=== PATIENT | female | born 1955 | race Caucasian/White ===

== ENCOUNTER 2018-06-15 05:52 | Day surgery (SDC) | payer BC ==
[~2018-06-15 05:52] MED LIST: Buffered Lidocaine 0.9% SYRIN* 5 ML/SYR SYRINGE INTRADERM ONE
[2018-06-15] MEDS ORDERED: ceFAZolin 1 GM in Dextrose (*) 1 GM/50 ML BAG IVPB ONE (06:07)
[2018-06-15] MEDS ORDERED: ceFAZolin 2 GM in NS PREMIX(*) 2 GM/100 ML BAG IVPB ONE (06:07)
[2018-06-15] MEDS ORDERED: Buffered Lidocaine 0.9% SYRIN* 5 ML/SYR SYRINGE ONE (06:07)
[2018-06-15] MEDS ORDERED: Lidocaine 2% PF * 5 ML VIAL ONE ×2 (06:46)
[2018-06-15] MEDS ORDERED: Succinylcholine* 20 MG/ML 10 ML VIAL ONE (06:46)
[2018-06-15] MEDS ORDERED: Propofol* 10 MG/ML 20 ML BTL IV PUSH ONE (06:46)
[2018-06-15] MEDS ORDERED: fentaNYL* 50 MCG/ML 2 ML VIAL (100 MCG VIAL) ONE (06:50)
[2018-06-15] MEDS ORDERED: Midazolam* 1 MG/ML 2 ML VIAL (2 MG) ONE (06:50)
[2018-06-15] MEDS ORDERED: Bupivacaine 0.5% SDV PF* 30ML VIAL ONE (07:22)
[2018-06-15] MEDS ORDERED: Bupivacaine 0.25% SDV* 30 ML ONE (07:22)
[2018-06-15] MEDS ORDERED: Dexamethasone IV* 4 MG/ML 1 ML (4 MG) ONE (07:44)
[2018-06-15] MEDS ORDERED: Ondansetron INJ* 2 MG/ML VIAL ONE (07:44)
[2018-06-15] MEDS ORDERED: EPHEDrine (Pressors)* 50 MG/ML VIAL ONE (07:44)
[2018-06-15] MEDS ORDERED: Naloxone* 0.4 MG/ML 1 ML VIAL IV PRN (08:07)
[2018-06-15] MEDS ORDERED: Ondansetron ODT TAB* 4 MG PO PRN (08:07)
[2018-06-15] MEDS ORDERED: fentaNYL* 50 MCG/ML 2 ML VIAL (100 MCG VIAL) IV PRN (08:07)
[2018-06-15] MEDS ORDERED: Acetaminophen IV 1GM/100ML * 100 ML ONE (08:08)
[2018-06-15] MEDS ORDERED: Ketorolac INJ* 30 MG/ML 1 ML VIAL ONE (08:09)
[2018-06-15] MEDS ORDERED: Metoclopramide IV* 5 MG/ML 2 ML VIAL ONE (08:09)
--- NOTE | 2018-06-15 09:07 | OP ---
Operative Report - Blank - Operative Report Date of Operation: 06/15/18 Note: PATIENT: Stephanie Subramanian DATE OF : 1955 DATE OF SURGERY: 06/15/2018 SURGEON: Edward Mcgowan MD REMODELER: GIOVANNI Man, whos assistance was necessary for positioning, retraction, help with instrumentation, and closure. ANESTHESIOLOGIST: Dr. Mitchell PREOPERATIVE DIAGNOSIS: Left ankle arthritis with anterior impingement with distal tibia and dorsal talus osteophytes. POSTOPERATIVE DIAGNOSIS: Left ankle arthritis with anterior impingement with distal tibia and dorsal talus osteophytes. OPERATION: 1. Left ankle arthroscopy with extensive debridement. 2. Left ankle excision of distal tibial osteophytes/saucerization. 3. Left ankle excision of dorsal talus osteophytes/saucerization. ANESTHESIA: LMA IMPLANTS: none TOURNIQUET TIME: Less than 1 hour with a well-padded thigh tourniquet at 275mmHg SPECIMENS: none ESTIMATED BLOOD LOSS: minimal COMPLICATIONS: none STATUS: Stable from the operating room to the recovery room and then home. INDICATIONS FOR PROCEDURE: Stephanie has left ankle arthritis and anterior bony impingement that has been refractory to extensive non-operative treatment. Both operative and non operative treatment alternatives were reviewed. Further, the nature and risks of surgery were reviewed in careful detail, in the office as well as the pre- operative holding area. Our discussions regarding the risks of surgery included , but were not limited to, infection, wound problems, nerve injury, neuroma, RSD , persistent symptoms, blood clot, failure of the surgery, and even the remote chance of catastrophic complication, including loss of limb. DESCRIPTION OF PROCEDURE: The patient was seen in the preoperative holding unit and informed written consent was obtained. The appropriate extremity was marked. The patient was then brought to the operating room and carefully positioned on the operating room table. Anesthesia was induced. All bony prominences were padded with great care. A well-padded thigh tourniquet was placed. A chlorhexidine based pre- scrub was performed followed by a chloraprep prep and drape in standard sterile fashion. A surgical safety pause was then conducted in which we confirmed the appropriate patient, extremity, planned procedure, availability of equipment, indication and administration of prophylactic antibiotics, and DVT prophylaxis in the form of a compression boot on the non-surgical extremity. I began with an Esmarch exsanguination of the limb and the tourniquet was inflated. The leg was positioned in the noninvasive ankle arthroscopy leg myers setup. I began by establishing the anteromedial portal. I utilized a spinal needle for this. Great care was taken to protect the superficial neurovascular structures. Under direct visualization, I then established an anterolateral portal. Great care was taken to protect the superficial peroneal nerve. There was a fair amount of arthritis in the joint, especially anteriorly. There were free flaps of cartilage, as well as cartilaginous loose bodies. I utilized a full radius shaver to remove these free cartilaginous loose bodies, as well as all flaps of cartilage. I also removed a considerable amount of synovitis from the anterior aspect of the ankle joint. This was carefully removed to give a nice view of the ankle joint. I then turned my attention to the anterior impingement of the ankle joint. The anterior aspect of the distal tibia was exposed using the shaver. This revealed a protruding osteophyte at the anterior aspect of the distal tibia, as well as the dorsal aspect of the talus. There was also a bony loose body at the anterior joint, embedded in the soft tissues. A 3 mm arthroscopic kamar was utilized to kamar down the osteophytes and loose body, thus performing a distal tibia and dorsal talus saucerization. Afterwards, she had no bony blocks to dorsiflexion as seen directly arthroscopically with range of motion. I then again utilized the full radius shaver to remove all additional debris from the ankle joint. I then made a longitudinal 2 cm incision at the anteromedial ankle joint line. I bluntly dissected down to the medial shoulder of the ankle joint. I then used a rongeur to excise osteophytes from the anterior aspect of the medial malleolus. The ankle had improved dorsiflexion afterwards. I then copiously irrigated the wounds and closed in layers utilizing 3-0 Monocryl and 3-0 nylon. At this point, a sterile dressing was applied. The patient was then awakened from anesthesia and transferred to the recovery room in stable condition. There were no complications. All needle and sponge counts were correct at the end of the case. ATTESTATION: I attest I was present and scrubbed and performed the critical portions of the procedure myself. POSTOPERATIVE PLAN: She will follow up in 2 weeks for likely suture removal. She can be weightbearing as tolerated in an Aircast boot.
[2018-06-15] MEDS ORDERED: Ondansetron ODT TAB* 4 MG ONE (10:37)
[2018-06-15 10:40] VITALS: BP 114/73
== END 2018-06-15 11:05 | disposition home or self-care (01) ==
LOC: OR 05:52
PROVIDERS: ATTEND Orthopaedic Surgery
DX: M19.072 Primary osteoarthritis, left ankle and foot (principal); M25.772 Osteophyte, left ankle; M25.872 Other specified joint disorders, left ankle and foot; J45.909 Unspecified asthma, uncomplicated; Z85.42 Personal history of malignant neoplasm of other parts of uterus; E66.01 Morbid (severe) obesity due to excess calories
CPT/HCPCS: A9270-GY; J0330; J0690; J1100; J1885; J2250; J2405; J2704; J2765; J3010

== ENCOUNTER 2018-10-11 10:53 | Emergency (ER) | payer BC ==
[2018-10-11 11:16] VITALS: BP 137/77
[2018-10-11] MEDS ORDERED: Ketorolac INJ* 30 MG/ML 1 ML VIAL IM ONE (11:43)
--- NOTE | 2018-10-11 11:49 | UC ---
Back Pain HPI - HPI Summary HPI Summary: She is a 63-year-old female that has had low back pain right buttocks pain and right sided sciatica since June 2018. Her symptoms seem to be improving until 2 days ago when she had to sit through a long meeting a hard chair. She now has severe pain right buttocks radiating down the right posterior thigh. She has some numbness to the bottom of her foot. Denies any bowel or bladder dysfunction. She does have a history of uterine cancer. She has been on 25 day courses of prednisone during this which seemed to help dramatically. Her last dose of ibuprofen was about 6 hours ago. - History of Current Complaint Chief Complaint: UCLowerExtremity Stated Complaint: leg pain Time Seen by Provider: 10/11/18 11:37 Hx Obtained From: Patient Onset/Duration: Sudden Onset, Lasting Weeks Timing: Constant Severity Initially: Mild Severity Currently: Moderate Pain Intensity: 4 - 8-10 when seated Pain Scale Used: 0-10 Numeric Back Pain: Is Discrete @, Radiates To - right post thigh Character: Aching, Throbbing, Spasmodic Aggravating Factor(s): Movement, Lifting, Bending, Other - sitting Alleviating Factor(s): Nothing Associated Signs And Symptoms: Positive: Numbness - bottom of right foot. Negative: Swelling, Redness, Bruising, Fever, Weakness Full Body (No Head): 1 - pain 2 - pain 3 - radiation 4 - numb - Allergies/Home Medications Allergies/Adverse Reactions: Allergies Allergy/AdvReac Type Severity Reaction Status Date / Time diphenhydramine Allergy Severe Swelling Verified 10/11/18 11:16 Home Medications: Home Medications Gabapentin 300 mg PO 10/11/18 [History] PMH/Surg Hx/FS Hx/Imm Hx Previously Healthy: Yes Cancer History: Other Other Cancer History: uterine - Surgical History Surgical History: Yes Surgery Procedure, Year, and Place: total hysterrectomy; left ankle repair; left shoulder - Social History Alcohol Use: Rare Substance Use Type: None Smoking Status (MU): Never Smoked Tobacco Review of Systems All Other Systems Reviewed And Are Negative: Yes Constitutional: Positive: Negative Skin: Positive: Negative Eyes: Positive: Negative ENT: Positive: Negative Respiratory: Positive: Negative Cardiovascular: Positive: Negative Gastrointestinal: Positive: Negative Genitourinary: Positive: Negative Motor: Positive: Negative Neurovascular: Positive: Negative Musculoskeletal: Positive: Myalgia Neurological: Positive: Numbness - bottom of right foot Psychological: Positive: Negative Physical Exam Triage Information Reviewed: Yes Appearance: Well-Appearing, No Pain Distress, Well-Nourished Vital Signs: Initial Vital Signs Temp 97.5 F 10/11/18 11:11 Pulse 71 10/11/18 11:11 Resp 18 10/11/18 11:11 BP 137/77 10/11/18 11:11 Pulse Ox 97 10/11/18 11:11 Vital Signs Reviewed: Yes Eyes: Positive: Conjunctiva Clear ENT: Positive: Hearing grossly normal. Negative: Nasal congestion, Nasal drainage, Trismus, Muffled voice, Hoarse voice Dental Exam: Normal Neck: Positive: Supple, Nontender, No Lymphadenopathy Respiratory: Positive: Lungs clear, Normal breath sounds, No respiratory distress, No accessory muscle use Cardiovascular: Positive: RRR, No Murmur Musculoskeletal: Positive: Other: - (+) SLR on right Neurological: Positive: Alert, Other: - see image Psychological Exam: Normal Skin Exam: Normal Diagnostics - Radiology No standard instances Radiology Interpretation Completed By: Radiologist Summary of Radiographic Findings: views of the lumbar spine demonstrates grade 1 spondylolisthesis of L3 on 4 and L4 on 5. Disc space narrowing at L4-L5 and L5-S1 is noted. Facet arthropathy is noted. Back Pain Course/Dx - Differential Dx/Diagnosis Provider Diagnosis: Right sided sciatica, Spondylolisthesis at L3-L4 level, Lumbar degenerative disc disease, Facet arthritis of lumbar region Discharge - Sign-Out/Discharge Documenting (check all that apply): Patient Departure All imaging exams completed and their final reports reviewed: Yes - Discharge Plan Condition: Stable Disposition: HOME Patient Education Materials: Sciatica (ED) Referrals: Tana Rose MD [Primary Care Provider] - - Billing Disposition and Condition Condition: STABLE Disposition: Home
== END 2018-10-11 12:51 | disposition home or self-care (01) ==
LOC: UCEAST 10:53
DX: M51.16 Intervertebral disc disorders with radiculopathy, lumbar region (principal); M43.16 Spondylolisthesis, lumbar region; M46.86 Other specified inflammatory spondylopathies, lumbar region; Z88.8 Allergy status to other drugs, medicaments and biological substances
CPT/HCPCS: 72110; 99212; G0463; J1885

== ENCOUNTER 2019-03-22 09:36 | Emergency (ER) | payer BC ==
[2019-03-22 09:48] VITALS: BP 123/80
--- NOTE | 2019-03-22 10:16 | UC ---
Neck Pain HPI - HPI Summary HPI Summary: She started with a stiff neck a couple days ago which was markedly worse yesterday morning when she woke up. She's been treating it with ibuprofen and some leftover Flexeril and it is a little bit better today. It hurts to move and makes it difficult to sleep. She has no known injury. - History of Current Complaint Chief Complaint: UCGeneralIllness Stated Complaint: STIFF NECK Time Seen by Provider: 03/22/19 10:10 Hx Obtained From: Patient Onset/Duration Of Injury/Symptoms: Days - A lot that Onset/Duration: Gradual Onset Severity: Moderate - The and that the Pain Intensity: 7 Location: Discrete At: - left upper neck Character: Stiff Aggravating Factors: Movement Alleviating Factors: Other: - flexeril, Heat Associated Signs & Symptoms: Positive: Negative - Allergies/Home Medications Allergies/Adverse Reactions: Allergies Allergy/AdvReac Type Severity Reaction Status Date / Time diphenhydramine Allergy Severe Swelling Verified 03/22/19 09:48 PMH/Surg Hx/FS Hx/Imm Hx Previously Healthy: Yes Respiratory History: Asthma - Surgical History Surgical History: Yes Surgery Procedure, Year, and Place: total hysterrectomy; left ankle repair; left shoulder - Social History Alcohol Use: Rare Substance Use Type: None Smoking Status (MU): Never Smoked Tobacco Review of Systems All Other Systems Reviewed And Are Negative: Yes Constitutional: Positive: Negative ENT: Positive: Negative Respiratory: Positive: Negative Neurovascular: Positive: Negative Musculoskeletal: Positive: Decreased ROM Neurological: Positive: Negative Psychological: Positive: Negative Physical Exam Triage Information Reviewed: Yes Appearance: Well-Appearing Vital Signs: Initial Vital Signs Temp 98.1 F 03/22/19 09:44 Pulse 84 03/22/19 09:44 Resp 18 03/22/19 09:44 BP 123/80 03/22/19 09:44 Pulse Ox 98 03/22/19 09:44 Vital Signs Reviewed: Yes ENT: Positive: Normal ENT inspection Neck: Positive: Tenderness @ - left paracervical Respiratory Exam: Normal Cardiovascular Exam: Normal Musculoskeletal Exam: Normal Neurological Exam: Normal Psychological Exam: Normal Neck Pain Course/Dx - Course Course Of Treatment: I think Ms. Subramanian is doing the right things using ibuprofen and Flexeril and it is apparently working. I recommended we continue and we'll send her a prescription for additional Flexeril. - Differential Dx/Diagnosis Provider Diagnosis: Cervical strain Discharge - Sign-Out/Discharge Documenting (check all that apply): Patient Departure All imaging exams completed and their final reports reviewed: No Studies - Discharge Plan Condition: Stable Disposition: HOME Patient Education Materials: Cervical Strain (ED) Referrals: Tana Rose MD [Primary Care Provider] - - Billing Disposition and Condition Condition: STABLE Disposition: Home
== END 2019-03-22 10:30 | disposition home or self-care (01) ==
LOC: UCEAST 09:36
DX: S16.1XXA Strain of muscle, fascia and tendon at neck level, initial encounter (principal); X58.XXXA Exposure to other specified factors, initial encounter; Y93.84 Activity, sleeping; Y92.003 Bedroom of unspecified non-institutional (private) residence as the place of occurrence of the external cause
CPT/HCPCS: 99212; G0463

== ENCOUNTER 2019-10-10 07:08 | Day surgery (SDC) | payer BC ==
[~2019-10-10 07:08] MED LIST changes: +Acetaminophen TAB* 325 MG PO PRN; -Buffered Lidocaine 0.9% SYRIN* 5 ML/SYR SYRINGE INTRADERM ONE; +Buffered Lidocaine 1% SYRIN* 1 ML/SYRINGE INTRADERM ONE
[2019-10-10] MEDS ORDERED: Midazolam* 1 MG/ML 5 ML VIAL (5 MG) ONE (08:57)
[2019-10-10 09:58] VITALS: BP 143/62
--- NOTE | 2019-10-10 10:40 | OP ---
DATE OF OPERATION: 10/10/2019 [facility] DATE OF : 1955. SURGEON: Alfonso Lozano M.D. PREOPERATIVE DIAGNOSIS: Cataract right eye. POSTOPERATIVE DIAGNOSIS: Cataract right eye. OPERATIVE PROCEDURE: Extracapsular cataract extraction with intraocular lens implant right eye. DESCRIPTION OF PROCEDURE: The patient was brought to the operating room after being given 1/2% Alcaine with epinephrine drops in the preoperative area. The eye was prepped and draped in the usual sterile fashion. Sterile drape and eyelid speculum were placed. Again, topical 1/2% Alcaine with epinephrine was given. A paracentesis incision was made at the 9 o'clock position with the No.75 blade. Clear cornea incision 2.2 x 2.2-mm was created at the 12 o'clock position starting at the anterior limbus using the 2.2-mm keratome. The anterior chamber was irrigated with 0.4 mL of 1% non-preservative intracameral lidocaine and filled with DisCoVisc. A capsulorrhexis was completed using the cystotome and the Utrata forceps. Hydrodissection was performed with balanced salt solution. The lens nucleus was removed with the Phacoemulsification handpiece without incident. Cortex was removed with the irrigation-aspiration handpiece. The capsular bag was re-inflated using DisCoVisc and an [id number] 20.5 implant was inserted with the shooter. The irrigation-aspiration handpiece was used to remove all residual DisCoVisc. The eye was refilled with balanced salt solution and the wound checked and found to be watertight. Topical Maxitrol drops were given. [id number]/[facility] #: [id number] [facility]
[2019-10-10] MEDS ORDERED: Proparacaine 0.5% OPHTH.SOL* 15 ML BTL ONE (13:30)
[2019-10-10] MEDS ORDERED: Lidocaine 1% MPF ** 5 ML VIAL ONE (13:30)
[2019-10-10] MEDS ORDERED: Neomycin/Polymy/Dex OPTH.SUSP* MAXITROL 0.1% 5 ML ONE (13:30)
[2019-10-10] MEDS ORDERED: Lidocaine 2% w/ EPI 1:200,000* 20 ML SDV VIAL ONE (13:30)
[2019-10-10] MEDS ORDERED: acetaZOLAMIDE TAB* 250 MG ONE (13:30)
[2019-10-10] MEDS ORDERED: Povidone Iodine 5% OPTH* 30 ML BTL ONE (13:30)
[2019-10-10] MEDS ORDERED: Cyclopentolate 1% OPTH.SOL* 2 ML BTL ONE (13:30)
[2019-10-10] MEDS ORDERED: Phenylephrine OPHTH SOL 2.5%* 2 ML ONE (13:30)
[2019-10-10] MEDS ORDERED: Ketorolac 0.5% OPHTH (NF) 0.5 % 5 ML BTL ONE (13:30)
== END 2019-10-10 10:10 | disposition home or self-care (01) ==
LOC: OREAST 07:08
PROVIDERS: ATTEND Specialist
DX: H25.811 Combined forms of age-related cataract, right eye (principal); H33.8 Other retinal detachments; Z85.42 Personal history of malignant neoplasm of other parts of uterus; J45.909 Unspecified asthma, uncomplicated; E66.9 Obesity, unspecified
CPT/HCPCS: A9270-GY; J2250; V2632